=== PATIENT | female | born 1980 | race Caucasian/White ===

== ENCOUNTER 2024-08-01 02:58 | Inpatient (IN) | payer OTHER ==
[2024-08-01 03:34] VITALS: BMI 27.0
[2024-08-01] MEDS ORDERED: NICOTINE POLACRILEX 2 MG LOZENGE BC PRN (09:01)
[2024-08-01] MEDS ORDERED: ACETAMINOPHEN 325 MG TABLET (FP) PO PRN (09:01)
[2024-08-01] MEDS ORDERED: P-EPHED 60MG/TRIPROLIDI 2.5MG TABLET PO PRN (09:01)
[2024-08-01] MEDS ORDERED: NICOTINE POLACRILEX 2 MG GUM BUC PRN (09:01)
[2024-08-01] MEDS ORDERED: BENZONATATE 200 MG CAPSULE PO PRN (09:01)
[2024-08-01] MEDS ORDERED: BENZOCAINE/MENTHOL (CHLORASEPTIC ) LOZENGE MM PRN (09:01)
[2024-08-01] MEDS ORDERED: MAGNESIUM HYDROX 2400MG/30ML ORAL SUSPENSION 30 ML CUP PO PRN (09:01)
[2024-08-01] MEDS ORDERED: IBUPROFEN 600 MG TABLET (FP) PO PRN (09:01)
[2024-08-01] MEDS ORDERED: BISMUTH SUBSALICYLATE 524 MG/30 ML PO PRN (09:01)
[2024-08-01] MEDS ORDERED: LOPERAMIDE HCL 2 MG CAPSULE PO PRN (09:01)
[2024-08-01] MEDS ORDERED: guaiFENesin 600 MG TABLET.ER (FP) PO PRN (09:01)
[2024-08-01] MEDS ORDERED: MAG HYDROX/AL HYDROX/SIMETH 30 ML UNIT-DOSE CUP PO PRN (09:01)
[2024-08-01] MEDS ORDERED: NALOXONE (NYS OPIOID OVERDOSE PROGRAM) 4 MG/0.1 ML SPRAY NS PRN (09:01)
[2024-08-01] MEDS ORDERED: ONDANSETRON *ODT* 4 MG TABLET SL PRN (09:01)
[2024-08-01] MEDS ORDERED: POLYETHYLENE GLYCOL (HEALTHYLAX) 3350 17 GM PACKET PO PRN (09:01)
[2024-08-01] MEDS ORDERED: NALOXONE (NARCAN) HCL 4 MG/0.1 ML SPRAY NS PRN (09:01)
[2024-08-01] MEDS ORDERED: PRENATAL VITAMINS W/ FOLIC ACID TABLET (FP) PO ONE (10:57)
[2024-08-01] MEDS: PRENATAL VITAMINS W/ FOLIC ACID TABLET (FP) PO SCH (11:03)
[2024-08-01] MEDS: MELATONIN 5 MG TABLETS PO SCH (23:25)
[2024-08-01] MEDS: THIAMINE 100 MG TABLET PO SCH (23:26)
[2024-08-02] MEDS: methaDONE HCL 10 MG TABLET PO ONE (10:23)
[2024-08-02] MEDS ORDERED: methaDONE HCL 10 MG TABLET PO PRN (11:43)
[2024-08-03] MEDS: methaDONE 40 MG, methaDONE 10 MG PO ONE (09:43)
[2024-08-03 15:18] LABS: HIV INTERPRETATION NEGATIVE (NEGATIVE)
[2024-08-03] MEDS: diazePAM 5 MG TABLET PO PRN (17:05)
[2024-08-03] MEDS: hydrOXYzine PAMOATE 25 MG CAPSULE (FP) PO PRN (17:06)
[2024-08-03] MEDS: SUVOREXANT 10 MG TABLET PO PRN (22:00)
[2024-08-03] MEDS: METHOCARBAMOL 500 MG TABLET PO PRN (22:01)
[2024-08-04] MEDS ORDERED: cloNIDine HCL 0.1 MG TABLET PO PRN
[2024-08-04] MEDS: DEXTROAMPHETAMINE/AMPHETAMINE 10 MG CAP.ER.24H PO SCH (10:07)
[2024-08-04] MEDS: methaDONE 40 MG, methaDONE 20 MG PO ONE (10:08)
[2024-08-04] MEDS: NICOTINE 21 MG/24 HOURS TOPICAL PATCH TD SCH (13:13)
[2024-08-04] MEDS: BACITRACIN 0.9 GM PACKET TP SCH (13:46)
[2024-08-04] MEDS: IBUPROFEN 400 MG TABLET (FP) PO PRN (17:26)
[2024-08-05] MEDS: DICYCLOMINE HCL 10 MG CAPSULE PO PRN (02:12)
[2024-08-05] MEDS: methaDONE 40 MG, methaDONE 30 MG PO ONE (09:27)
[2024-08-05] MEDS: diazePAM 5 MG TABLET PO ONE (11:55)
[2024-08-06] MEDS: methaDONE 40 MG, methaDONE 30 MG PO ONE (09:14)
[2024-08-06 09:20] VITALS: BP 107/71; PULSE 87; RESP 16; TEMP 98
[2024-08-06] MEDS ORDERED: methaDONE HCL 40 MG DISPERSABLE TABLET PO ONE ×2 (10:00)
== END 2024-08-06 10:04 | disposition home or self-care (01) | DRG 773 ==
LOC: YASAS 02:58 → Y6N 10:42
PROVIDERS: ADMIT Neuromusculoskeletal Medicine & OMM; ATTEND Neuromusculoskeletal Medicine & OMM
PROC: HZ2ZZZZ Detoxification Services for Substance Abuse Treatment (ICD-10-PCS; principal; 2024-08-01)
DX: F11.23 Opioid dependence with withdrawal (principal); F14.20 Cocaine dependence, uncomplicated; F13.20 Sedative, hypnotic or anxiolytic dependence, uncomplicated; F17.210 Nicotine dependence, cigarettes, uncomplicated; F19.282 Other psychoactive substance dependence with psychoactive substance-induced sleep disorder; F19.280 Other psychoactive substance dependence with psychoactive substance-induced anxiety disorder; F19.24 Other psychoactive substance dependence with psychoactive substance-induced mood disorder; F90.9 Attention-deficit hyperactivity disorder, unspecified type; Z87.448 Personal history of other diseases of urinary system
CPT/HCPCS: 36415; 80305; 81025; 86803; 87389; 93005; 93010